=== PATIENT | female | born 1995 ===

== ENCOUNTER → 2021-04-12 10:13 | Outpatient (CLI) | payer SELFPAY | PROVIDERS: Visit Provider Physician Assistant | DX: J02.9 Acute pharyngitis, unspecified (principal) | CPT/HCPCS: 87070; 87147 ==

== ENCOUNTER → 2022-03-15 12:44 | Outpatient (CLI) | payer OTHER, SELFPAY ==
[2022-03-15 13:29] LABS: Appearance Urine UA SL CLOUDY; Bilirubin Urine UA NEGATIVE (NEGATIVE); Color Urine UA YELLOW; Glucose Urine UA NEGATIVE (Negative); Ketones Urine UA NEGATIVE (NEGATIVE); Leukocyte Esterase Urine UA 3+ (NEGATIVE); Nitrite Urine UA POSITIVE (Negative); Occult Blood Urine UA TRACE-LYSED (Negative); Protein Urine UA NEGATIVE (Negative); Urobilinogen Urine UA 0.2 E.U./dL (0.2)
[2022-03-15 13:35] LABS: Add Manual Diff / Slide Review NO; Basophils Absolute Auto 0 /uL (0-100); Basophils Percent Auto 0.2 % (0-2); Eosinophils Absolute Auto 0 /uL (0-450); Eosinophils Percent Auto 0.6 % (2-4); Hemoglobin 12.8 g/dL (12.0-16.0); Lymphocytes Absolute Auto 1800 /uL (1100-4500); Lymphocytes Percent Auto 26.2 % (25-40); Mean Corpuscular HGB Conc 35.7 % (30-36); Mean Corpuscular Hemoglobin 29.2 PG (26-34); Monocytes Absolute Auto 200 /uL (0-900); Monocytes Percent Auto 3.2 % (3-14); Neutrophils Absolute Auto 4800 /uL (1500-7000); Neutrophils Percent Auto 69.8 % (50-75); Platelet Count 164 X10^3/uL (150-400); Red Blood Cell Count 4.39 X10^6/uL (4.0-5.2); Red Cell Distribution Width 13.7 % (11.6-14.8); White Blood Cell Count 6.9 X10^3/uL (4.5-11.0)
[2022-03-15 13:47] LABS: RBC Urine 1-5/HPF (0-5/HPF); Squamous Epithelial Cell Urine 0-1 /HPF (0-5/HPF); WBC Urine 30-100/HPF (0-5/HPF)
[2022-03-15 13:48] LABS: Bacteria Urine Many (>30)
[2022-03-15 15:35] LABS: Hepatitis B Surface Antigen NEGATIVE s/c (NEGATIVE); Rubella Antibody IgG 21.1 IU/mL (>15)
[2022-03-15 16:04] LABS: HIV 1 & 2 Ab/Ag 4th Gen Combo NEGATIVE (NEGATIVE); Hep C Virus Ab w/Reflex Quant NEGATIVE s/c (NEGATIVE)
[2022-03-16 13:24] LABS: RPR Screen Non Reactive (Non Reactive); Varicella IgG Antibody 474 index (Immune >165)
== END ==
PROVIDERS: Referring Provider Obstetrics & Gynecology; Visit Provider Obstetrics & Gynecology
DX: Z34.00 Encounter for supervision of normal first pregnancy, unspecified trimester (principal)
CPT/HCPCS: 36415; 80055; 81003; 81015; 86787; 86803; 86850; 86900; 86901; 87086; 87389

== ENCOUNTER → 2022-03-17 14:08 | Outpatient (CLI) | payer OTHER, SELFPAY ==
--- NOTE | 2022-03-17 14:10 | DI.US.S_ITS ---
PROCEDURE: US OB >= 14 WEEKS FETUS INDICATIONS: ANATOMY OUTSIDE/PRIOR DATING DATA: Last menstrual period (LMP): October 25, 2021 LMP-based estimated date of delivery (ANNA): August 01, 2022. First dating scan (date and location): March 17, 2022. Estimated date of delivery (ANNA) from first dating scan: August 05, 2022. The calculations are made using the sonographic ANNA of August 05, 2022. TECHNIQUE: Real-time scanning was performed of the fetus, with image documentation and biometric measurements. Endovaginal scanning: Not performed COMPARISON: None. FINDINGS: General: A single living intrauterine gestation is present. Presentation: Vertex. Placenta: Placental position is posterior , without previa. Amniotic fluid index: 13.4 cm with largest pocket measuring 3.9 cm. heart rate: 153 beats per minute. Maternal cervical canal: 4.9 cm long. Normal lower limit is 2.5 cm. biometrics: Biparietal diameter: 4.8 cm, 20 weeks and 4 days Head circumference: 17.8 cm, 20 weeks and 2 days Abdominal circumference: 13.7 cm, 19 weeks and 1 day Femur length: 3.0 cm, 19 weeks and 1 day Clinically estimated gestational age: 20 weeks and 3 days Composite gestational age from present scan: 19 weeks and 6 days Estimated weight and percentile: 286 g which correlates with the 6th percentile. Anatomic survey: Neuro: Ventricles are non-dilated at less than 10 mm. Cisterna magna is normal at 3-11 mm. Cerebellum is normal in size and morphology. Nuchal skin fold: Normal at less than 6 mm between 14-21 weeks gestational age. Face: Nose and lips, facial profile are normal. Spine: No evidence for spina bifida. Heart: 4-chambered heart is present, with normal ventricular outflow tracts. Diaphragm: Diaphragm is intact. Stomach: Left-sided stomach is present. Kidneys: No hydronephrosis. Normal is less than 5 mm in 2nd trimester, less than 7 mm in 3rd trimester. Cord: 3-vessel cord has orthotopic insertion. Bladder: Normal in size. Extremities: All 4 extremities identified. IMPRESSION: Single living intrauterine gestation with estimated sonographic gestational age of approximately 19 weeks and 6 days, correlating with estimated dated delivery of approximately August 05, 2022. Estimated weight is approximately 286 g which correlates with the 6th percentile based off gestational age. Recommend clinical correlation and follow-up. Otherwise, unremarkable second-trimester anatomic screening survey. We strive to produce accurate, complete, and clear reports of imaging services. To assist us in improving patient care, this report was composed using standard report templates and voice recognition software. Therefore, it may contain abnormal punctuation, insertions and/or omissions. Occasional wrong-word or sound-alike substitutions may occur. Though we review the report and make efforts to correct it, we do recommend that the report be read carefully in proper context to recognize any text inaccuracies. Dictated by: Asher Isaac M.D. on 03/17/2022 at 16:21 Approved by: Asher Isaac M.D. on 03/17/2022 at 16:27
== END ==
PROVIDERS: PCP Internal Medicine; Referring Provider Obstetrics & Gynecology; Visit Provider Obstetrics & Gynecology
DX: Z34.02 Encounter for supervision of normal first pregnancy, second trimester (principal); Z3A.19 19 weeks gestation of pregnancy
CPT/HCPCS: 76811

== ENCOUNTER → 2022-04-26 15:39 | Outpatient (CLI) | payer OTHER, SELFPAY ==
--- NOTE | 2022-04-26 15:39 | DI.US.S_ITS ---
PROCEDURE: US OB FOLLOW UP INDICATIONS: GROWTH OUTSIDE/PRIOR DATING DATA: Last menstrual period (LMP): October 25, 2021 LMP-based estimated date of delivery (ANNA): August 01, 2022 First dating scan (date and location): March 17, 2022 Estimated date of delivery (ANNA) from first dating scan: August 05, 2022 The calculations are made using the ultrasound ANNA of August 05, 2022. TECHNIQUE: Real-time scanning was performed of the fetus, with image documentation and biometric measurements. Endovaginal scanning: Performed COMPARISON: None. FINDINGS: General: A single living intrauterine gestation is present. Presentation: Vertex Placenta: Placental position is posterior, without previa. Amniotic fluid index: 13.5 cm, normal range is 5-24 cm. Single deepest vertical pocket is 4.3 cm. heart rate: 152 beats per minute. Maternal cervical canal: Closed and 4.7 cm long. Normal lower limit is 2.5 cm. biometrics: Biparietal diameter: 26 weeks 3 days Head circumference: 25 weeks 4 days Abdominal circumference: 24 weeks 2 days Femur length: 25 weeks 5 days Clinically estimated gestational age: 26 weeks 1 day Composite gestational age from present scan: 25 weeks 4 days Estimated weight and percentile: 763 grams corresponding to the 8th percentile for gestational age. Other: Not applicable. IMPRESSION: Single living intrauterine with ultrasound estimated gestational age of 214-weeks 4 days in the current study and expected age of 26 weeks 1 day based on initial ultrasound. Estimated weight 763 grams corresponding to the 8th percentile for gestational age concerning for developing intrauterine growth restriction. Recommend close clinical observation and short-term follow-up ultrasound. Dictated by: Delaney Marc MD, PhD on 04/26/2022 at 17:18 Approved by: Delaney Marc MD, PhD on 04/26/2022 at 17:21
== END ==
PROVIDERS: PCP Internal Medicine; Referring Provider Obstetrics & Gynecology; Visit Provider Obstetrics & Gynecology
DX: Z36.2 Encounter for other antenatal screening follow-up (principal); Z3A.25 25 weeks gestation of pregnancy
CPT/HCPCS: 76816

== ENCOUNTER → 2022-05-03 13:56 | Outpatient (CLI) | payer OTHER, SELFPAY ==
[2022-05-03 15:22] LABS: Hematocrit 34.8 % (36-46); Hemoglobin 12.2 g/dL (12.0-16.0)
[2022-05-03 15:34] LABS: GTT (PREG) 1 Hour PP 50gm Dose 85 mg/dL (76-139)
== END ==
PROVIDERS: PCP Internal Medicine; Referring Provider Obstetrics & Gynecology; Visit Provider Obstetrics & Gynecology
DX: Z34.02 Encounter for supervision of normal first pregnancy, second trimester (principal); Z3A.26 26 weeks gestation of pregnancy
CPT/HCPCS: 36415; 82950; 85014; 85018

== ENCOUNTER → 2022-05-12 15:02 | Outpatient (CLI) | payer OTHER, SELFPAY ==
[2022-05-12 20:38] LABS: Urine N gonorrhoeae NOT DETECTED
[2022-05-12 20:54] LABS: Urine Chlamydia NOT DETECTED
== END ==
PROVIDERS: PCP Internal Medicine; Visit Provider Obstetrics & Gynecology
DX: Z34.02 Encounter for supervision of normal first pregnancy, second trimester (principal); Z3A.28 28 weeks gestation of pregnancy
CPT/HCPCS: 87491; 87591

== ENCOUNTER → 2022-07-18 13:04 | Outpatient (CLI) | payer OTHER, SELFPAY ==
[2022-07-19 12:42] LABS: Strep Grp B PCR POS for Grp B Strep
== END ==
PROVIDERS: PCP Internal Medicine; Visit Provider Physician Assistant Medical
DX: Z34.03 Encounter for supervision of normal first pregnancy, third trimester (principal); Z3A.36 36 weeks gestation of pregnancy
CPT/HCPCS: 87186; 87653

== ENCOUNTER → 2022-08-09 13:18 | Outpatient (CLI) | payer OTHER, SELFPAY ==
[2022-08-09 21:08] LABS: Strep Grp B PCR POS for Grp B Strep
== END ==
PROVIDERS: PCP Internal Medicine; Visit Provider Obstetrics & Gynecology
DX: Z34.83 Encounter for supervision of other normal pregnancy, third trimester (principal); Z3A.40 40 weeks gestation of pregnancy
CPT/HCPCS: 87653

== ENCOUNTER 2022-08-09 14:05 | Observation (INO) | payer OTHER, SELFPAY ==
--- NOTE | 2022-08-09 14:11 | DI.US.S_ITS ---
PROCEDURE: US OB LIMITED INDICATIONS: LOW AMNIOTIC FLUID. POSTDATES. OUTSIDE/PRIOR DATING DATA: Last menstrual period (LMP): October 25, 2021. LMP-based estimated date of delivery (ANNA): August 01, 2022 First dating scan (date and location): March 17, 2022, [facility] Estimated date of delivery (ANNA) from first dating scan: August 05, 2022 TECHNIQUE: Real-time scanning was performed of the fetus, with image documentation and biometric measurements. Biophysical profile was also obtained. COMPARISON: None. FINDINGS: General: A single living intrauterine gestation is present. Presentation: Vertex. Placenta: Placental position is posterior maternal right , without previa. Amniotic fluid index: 3.2 cm, normal range is 5-24 cm. Single deepest vertical pocket is 1.6 cm. heart rate: 155 beats per minute. Maternal cervical canal: Not visualized biometrics: Biparietal diameter: 9.4 cm, 38 weeks, 3 days Head circumference: 33.9 cm, 38 weeks, 6 days Abdominal circumference: 32.7 cm, 36 weeks, 4 days Femur length: 7.5 cm, 38 weeks, 4 days Clinically estimated gestational age: 40 weeks, 0 days Composite gestational age from present scan: 38 weeks, 1 day Biophysical profile: Tone: 2 points. Movement: 2 points. Respiration: 2 points. Largest pocket of fluid: 0 points. Umbilical artery Doppler: 2.16, 2.37 IMPRESSION: 1. Single live intrauterine gestation with a composite gestational age of 38 weeks, 1 days which is concordant with dates by initial scan. 2. Oligohydramnios. 3. 6/8 biophysical profile given low ALISTAIR. 4. Normal umbilical artery S/D ratio. We strive to produce accurate, complete, and clear reports of imaging services. To assist us in improving patient care, this report was composed using standard report templates and voice recognition software. Therefore, it may contain abnormal punctuation, insertions and/or omissions. Occasional wrong-word or sound-alike substitutions may occur. Though we review the report and make efforts to correct it, we do recommend that the report be read carefully in proper context to recognize any text inaccuracies. Dictated by: Sofy Villanueva M.D. on 08/09/2022 at 15:29 Approved by: Sofy Villanueva M.D. on 08/09/2022 at 15:32
== END 2022-08-09 16:45 | disposition home or self-care (01) ==
PROVIDERS: Admitting Provider Obstetrics & Gynecology; PCP Internal Medicine; Referring Provider Obstetrics & Gynecology; Visit Provider Obstetrics & Gynecology
DX: O41.03X0 Oligohydramnios, third trimester, not applicable or unspecified (principal); Z3A.40 40 weeks gestation of pregnancy
CPT/HCPCS: 59025; 59050; 76815; 76819; 87653; G0378; G0379

== ENCOUNTER 2022-08-10 12:58 | Outpatient (CLI) | payer OTHER, SELFPAY | END 2022-08-10 13:50 | disposition home or self-care (01) | LOC: LABOR 13:22 → OB 08-12 08:04 | PROVIDERS: PCP Internal Medicine; Referring Provider Obstetrics & Gynecology; Visit Provider Obstetrics & Gynecology | DX: O41.03X0 Oligohydramnios, third trimester, not applicable or unspecified (principal); O36.8130 Decreased fetal movements, third trimester, not applicable or unspecified; O48.0 Post-term pregnancy; Z3A.40 40 weeks gestation of pregnancy | CPT/HCPCS: 59025; G0378; G0379 ==

== ENCOUNTER 2022-08-11 08:59 | Outpatient (CLI) | payer OTHER, SELFPAY ==
--- NOTE | 2022-08-11 10:03 | DI.US.S_ITS ---
PROCEDURE: US OB BIOPHYSICAL PROFILE INDICATIONS: POST DATES; OLIGOHYDRAMNIOS OUTSIDE/PRIOR DATING DATA: Last menstrual period (LMP): 10/25/2021 LMP-based estimated date of delivery (ANNA): 08/01/2022 First dating scan (date and location): 03/17/2022 Estimated date of delivery (ANNA) from first dating scan: 08/05/2022 The calculations are made using the working ANNA of 08/09/2022. TECHNIQUE: Real-time scanning was performed of the fetus for biophysical profile, with image documentation. Endovaginal scanning: Not indicated COMPARISON: [facility], , OB >= 14 WEEKS FETUS, 06/06/2022, 16:33. [facility], OB >= 14 WEEKS FETUS, 08/09/2022, 13:47. [facility] OB LIMITED, 08/09/2022, 14:23. FINDINGS: General: A single living intrauterine gestation is present. Presentation: Vertex Placenta: Placental position is right fundal, without previa. Amniotic fluid index: 0 cm, normal range is 5-24 cm. Single deepest vertical pocket is 0 cm. heart rate: 121 beats per minute. Maternal cervical canal: Not well seen. Estimated gestational age from initial scan: 40 weeks, 2 days. Biophysical profile: Tone: 2 points. Movement: 2 points. Respiration: 2 points. Largest pocket of fluid: 0 points. IMPRESSION: 1. Single live intrauterine gestation with fetus in vertex presentation. heart rate is 121 beats per minute. 2. No appreciable amount of amniotic fluid is identified consistent with oligohydramnios. 3. biophysical profile score is 6/8 with largest pocket scores 0. We strive to produce accurate, complete, and clear reports of imaging services. To assist us in improving patient care, this report was composed using standard report templates and voice recognition software. Therefore, it may contain abnormal punctuation, insertions and/or omissions. Occasional wrong-word or sound-alike substitutions may occur. Though we review the report and make efforts to correct it, we do recommend that the report be read carefully in proper context to recognize any text inaccuracies. Dictated by: Abhishek Moore M.D. on 08/11/2022 at 12:28 Approved by: Abhishek Moore M.D. on 08/11/2022 at 12:31
== END 2022-08-11 13:12 | disposition home or self-care (01) ==
LOC: LABOR 11:15 → OB 08-12 08:03
PROVIDERS: PCP Internal Medicine; Referring Provider Obstetrics & Gynecology; Visit Provider Obstetrics & Gynecology
DX: O41.03X0 Oligohydramnios, third trimester, not applicable or unspecified (principal); O48.0 Post-term pregnancy; Z3A.40 40 weeks gestation of pregnancy
CPT/HCPCS: 59025; 76819; G0378; G0379

== ENCOUNTER 2022-08-11 15:12 | Inpatient (IN) | payer OTHER, SELFPAY ==
[2022-08-11 16:41] VITALS: BP 122/76
[2022-08-11 18:07] LABS: Add Manual Diff / Slide Review NO; Basophils Absolute Auto 0 /uL (0-100); Basophils Percent Auto 0.2 % (0-2); Eosinophils Absolute Auto 0 /uL (0-450); Eosinophils Percent Auto 0.2 % (2-4); Hematocrit 37.5 % (36-46); Hemoglobin 13.2 g/dL (12.0-16.0); Lymphocytes Absolute Auto 1900 /uL (1100-4500); Lymphocytes Percent Auto 16.6 % (25-40); Mean Corpuscular HGB Conc 35.1 % (30-36); Mean Corpuscular Hemoglobin 31.1 PG (26-34); Mean Corpuscular Volume 88.5 fL (80-100); Monocytes Absolute Auto 500 /uL (0-900); Monocytes Percent Auto 4.2 % (3-14); Neutrophils Absolute Auto 9100 /uL (1500-7000); Neutrophils Percent Auto 78.8 % (50-75); Platelet Count 137 X10^3/uL (150-400); Red Blood Cell Count 4.24 X10^6/uL (4.0-5.2); Red Cell Distribution Width 13.9 % (11.6-14.8); White Blood Cell Count 11.6 X10^3/uL (4.5-11.0)
[2022-08-11 18:21] LABS: COVID19 -Nasal RAPID Negative (Negative)
--- NOTE | 2022-08-11 18:27 | P.HPOB_ITS ---
OB HPI Date/Time Date of admission: 08/11/22 Date Patient Seen: 08/11/22 Time Patient Seen: 18:27 History of Present Condition Chief complaint: ANNA Calculator Estimated Delivery Date Method Current WG Current Estimate 08/09/22 Conception 40w 2d Other Estimates 08/01/22 LMP (Certain) 41w 3d 08/03/22 Ultrasound #1 41w 1d Estimated Gestational Age (weeks): 40+2 : 1 Para: 0 care: good care, initiated at week # (14), number of visits (11) and pounds weight gain (34) Dating criteria OB: LMP confirmed by 2nd trimester US Ultrasounds: normal mid trimester US Obstetrical complications: other (oligohydramnios) Medical complications OB: none Indications Indication for induction OB: oligohydramnios (ALISTAIR=0) Preadmission Labs Last OB Lab Results: Blood Type A Positive 03/15/22 12:57 Antibody Screen Negative 03/15/22 12:57 Hematocrit 37.5 % (36-46) 08/11/22 16:10 Hemoglobin 13.2 g/dL (12.0-16.0) 08/11/22 16:10 Hepatitis B Surface Antigen Negative s/c (NEGATIVE) 03/15/22 12 :57 Hepatitis C Antibody Negative s/c (NEGATIVE) 03/15/22 12:57 Rubella Antibody 21.1 IU/mL (>15) 03/15/22 12:57 Varicella-Zoster IgG Antibody 474 index (Immune >165) 03/15/22 12:57 Glucose 1 Hour 85 mg/dL (76-139) 05/03/22 15:13 Group B Streptococcus (PCR) Pos for grp b strep H 08/09/22 13:1 8 -: Chlamydia screen: negative, Gonorrhea screen: negative and Urine: negative External Labs -: Urine: negative Evaluation Evaluation Baseline heart rate: 145 Variability: Moderate (11-25) monitor accelerations: Present Monitor Decelerations: Variable (few,mild) Contraction Frequency (minutes): 5 Uterine Contraction Intensity: Mild Status: Category l Dilation (cm): 1 Effacement (%): 80 station: -1 Position of cervix: mid Consistency: medium PFSH Medical History (Updated 05/12/22 @ 16:03 by Delores Brown MD) Insomnia Surgical History (Updated 01/30/22 @ 22:14 by Harleen Nunes) [place] teeth extracted (~2013) Family History (Updated 01/30/22 @ 22:16 by Harleen Nunes) Grandfather Cancer Stroke Grandmother Hypertension Hyperlipidemia Chronic kidney disease Grandmother Hypertension Stroke Social History marital status: number of children: 0 household members: spouse housing: house pets and animals: Yes (1 cat, 1 dog) occupational status: employed current occupational exposures/hazards: No randall/confucianist: Catholic special randall needs: No seatbelt use: always water heater temp set < 120 deg: No (not sure) working smoke detector in home: Yes fire extinguisher in home: Yes carbon monox detector in home: Yes firearms in home: No (declining to answer) do you feel safe at home: Yes Smoking Status: Never smoker second hand exposure: No alcohol intake: former substance use type: does not use during the past year weight has: remained stable well-balanced diet: daily or most days daily servings fruits/ve-4 caffeine: No Type(s) of exercise: walking frequency: 1-2 times per week duration: 30-45 minutes/day Meds Home Medications and Allergies Home Medications Medication Instructions Recorded Confirmed Type melatonin 1 mg tablet 1 mg PO BEDTIME PRN see MD orders 01/13/22 08/11/22 History prenat.vits,jhony,vqf-zfbs-szyor 1 tab PO DAILY 01/13/22 08/11/22 History calcium carbonate 260 mg calcium 260 mg PO DAILY 01/26/22 08/11/22 History (650 mg) chewable tablet (Jhony-Mint) Allergies Allergy/AdvReac Type Severity Reaction Status Date / Time amoxicillin [From Augmentin] Allergy Intermediate Hives Verified 08/09/22 13:13 azithromycin [From Zithromax] Allergy Intermediate Hives Verified 08/09/22 13:13 clavulanic acid Allergy Intermediate Hives Verified 08/09/22 13:13 [From Augmentin] gentamicin Allergy Intermediate Hives Verified 08/09/22 13:13 OB Exam Narrative Exam Narrative: Generally: Patient is sitting up in bed, no acute distress Lungs: Clear to auscultation bilaterally Cardiovascular: Regular rate and rhythm Fundal height: 40 cm Estimated weight: 7 lb Extremities: No edema, 1+ DTRs Objective Labs Result Diagrams: 08/11/22 16:10 Labs: Laboratory Results - last 24 hr 08/11/22 08/11/22 16:10 16:10 WBC 11.6 H RBC 4.24 Hgb 13.2 Hct 37.5 MCV 88.5 MCH 31.1 MCHC 35.1 RDW 13.9 Plt Count 137 L Neut % (Auto) 78.8 H Lymph % (Auto) 16.6 L [place] % (Auto) 4.2 Eos % (Auto) 0.2 L Baso % (Auto) 0.2 Neut # (Auto) 9100 H Lymph # (Auto) 1900 [place] # (Auto) 500 Eos # (Auto) 0 Baso # (Auto) 0 SARS-CoV-2 (PCR) Negative Assessment and Plan Assessment and Plan Assessment and Plan narrative: Assessment: 26-year-old 1 para 0 at 40-,2/7 weeks gestation with severe oligohydramnios In early labor GBS positive Penicillin allergic Plan: If contractions space will do misoprostol Possible Pitocin in the morning Cefazolin GBS protocol Expected management to spontaneous vaginal delivery Time Spent with Patient Total time spent with greater than 50% in coordination of care (as documented) at patient's floor/unit and/or counseling patient:: Greater than 35 minutes
[2022-08-11] MEDS: CEFAZOLIN 2 GM/100 ML PREMIX 100 ML IV (20:05)
[2022-08-11] MEDS: LACTATED RINGERS 1,000 ML 100 ML IV (20:05)
[2022-08-12] MEDS: LACTATED RINGERS 500 ML 999 ML IV (03:00)
[2022-08-12] MEDS: CEFAZOLIN VIAL 1 GM in SODIUM CHLORIDE 0.9% 100 ML IV ×2 (04:15→12:14)
[2022-08-12] MEDS: OXYTOCIN PREMIX 30 UNIT/500 ML PLAST..BAG IV (04:58)
[2022-08-12] MEDS: FENT 2MCG/ML BUPIV 0.125% EPI 200 MCG/100 ML PLAST..BAG 8 MCG EPIDURAL (06:29)
[2022-08-12] MEDS: LACTATED RINGERS 1,000 ML 100 ML IV (08:55)
[2022-08-12] MEDS: FENT 2MCG/ML BUPIV 0.125% EPI 200 MCG/100 ML PLAST..BAG 5 MCG EPIDURAL (11:15)
--- NOTE | 2022-08-12 18:16 | PM.OBPNLAB ---
Date/Time Date Patient Seen: 08/12/22 Time Patient Seen: 07:30 Pain Control Pain control: epidural (at 3 am ) Pelvic Exam Dilation (cm): 3 Effacement (%): 80 station: -1 Amniotic membrane status: Intact Contractions Contractions on admission: irregular Pitocin rate (mU/min): 4 Contraction frequency (min): 3 Contraction duration (min): 1 Contraction pattern: Regular Contraction intensity: Strong/Firm Status status: Category l Heart Rate Baseline: 135 Monitor Accelerations: Present Monitor Decelerations: Absent Monitor Variability: Moderate Assessment and Plan Assessment: active labor Plan: continuous present management Comments: Recheck cervix at 10am
--- NOTE | 2022-08-12 18:19 | PM.OBPRVD ---
Events: Oligohydramnios (Severe) Labor & Delivery Delivery date: 08/12/22 Intrapartal Events: None Cervical ripening method: none Induction method: none Delivery augmentation: pitocin Delivery monitor: external FHT and external uterine Route of delivery: Episiotomy description: None L&D Laceration Description: Vaginal - 2nd Degree Delivery repair: chromic Estimated blood loss (mL): 100 Anesthesia Type: Epidural Complications: None Narrative: Patient complete and pushed for 3 hours and 31 minutes. No fluid at delivery. Unsure of when rupture of membranes occurred. Suspect sometimes through the night. At 2:03 p.m., a live male infant delivered spontaneously in the LISANDRA presentation over an intact perineum. No nuchal cord. The remainder of the body delivered without difficulty and was placed on mom's abdomen. The cord was double clamped and cut after it stopped pulsing. Cord bloods were obtained. The placenta delivered intact with a three-vessel cord at 2:32 p.m.. The fundus was massaged to firm. A second-degree vaginal laceration was repaired with 2-0 chromic in the usual fashion. Hemostasis was achieved. Estimated blood loss 100 cc. Apgars 9 at 1 minute and 9 at 5 minutes. Weight: 7 lb 1 oz. Estimated blood loss 100 cc. . Epidural analgesia. Mom and infant stable to recovery. Baby 1: gender: Male Presentation: vertex Position: Right Occiput Anterior Placenta delivery description: Spontaneous Cord Vessel Description: 3 Vessels and Clamped/Cut (after cord stopped pulsing) score (1 min): 9 score (5 min): 9 weight: 7 lb 1 oz Plan for aftercare: Routine care
[2022-08-12] MEDS: IBUPROFEN 600 MG TABLET PO (18:22)
[2022-08-12] MEDS: ACETAMINOPHEN 325 MG TABLET 650 MG PO (18:22)
[2022-08-12] MEDS: LANOLIN OINT 7 GM 1 APPLIC TOP (18:23)
[2022-08-12] MEDS: DERMOPLAST SPRAY 20% 60 ML 1 SPRAY TOP (18:23)
[2022-08-13] MEDS: ACETAMINOPHEN 325 MG TABLET 650 MG PO ×3 (00:37→14:50)
[2022-08-13] MEDS: IBUPROFEN 600 MG TABLET PO ×3 (00:38→14:50)
[2022-08-13] MEDS: DOCUSATE 100 MG CAPSULE PO (11:38)
--- NOTE | 2022-08-27 17:56 | P.DS_ITS ---
Discharge Providers Provider Date of admission: 08/11/22 15:12 Discharge Date: 08/13/22 Primary care physician: Kevin Barrera MD Consults: 08/13/22 14:45 Consult to Gore Cutter Routine Comment: Discharge provider: Delores Brown MD Summary Hospital Course Date Patient Seen: 08/13/22 Time Patient Seen: 08:30 Diagnoses: 40-2/7 weeks gestation Severe oligohydramnios Spontaneous vaginal delivery Hospital Course: Patient is a 26-year-old 1 para 1 who presented on August 11, 2022 for a nonstress test and ALISTAIR. She was found to have an ALISTAIR of 0. She was in early labor. She was 1 cm/80% effaced and-1 station. By the morning of August 12, 2022 she had progressed to 3 cm 80% and -1 station. She had a rupture of membr ane sometimes through the night. She was group B strep positive and was getting cefazolin prophylaxis. She received an epidural for pain management. After 3 hours and 31 minutes of pushing she had a spontaneous vaginal delivery without complication. Her course was unremarkable and she was discharged home on August 13, 2022. Peripartum Data Delivery Method: Natural Vaginal Laceration Description: Vaginal - 2nd Degree Episiotomy description: None Procedures: Group B strep prophylaxis Epidural analgesia Spontaneous vaginal delivery Second-degree vaginal laceration repair complications: none [place] 1: Gender: Male Disposition of : home Status at Discharge Cognitive/behavioral status at discharge: oriented Functional status at discharge: independent ambulation Overall status at discharge: patient is progressing back to baseline Time Spent with Patient Time attestation: Total time spent providing and/or coordinating discharge services: Time spent: Less than 30 minutes Objective Labs Result Diagrams: 08/11/22 16:10 Exam Narrative Exam Narrative: Generally: Patient is sitting in chair, holding infant, no acute distress Fundus: Firm at U -1 Extremities: Trace edema, negative Homans Discharge Plan Discharge Plan Patient Disposition: Home Provider Discharge Comment: Call with fever, chills, or bleeding vaginally more than a pad in an hour Ibuprofen 600 mg every 6 hours as needed for cramping Tylenol 650 mg every 6 hours as needed Drink lots of fluids Discharge orders & Medications Prescriptions: Continued calcium carbonate [Jhony-Mint] 260 mg calcium (650 mg) tablet,chewable 260 mg PO DAILY prenat.vits,jhony,ipi-jkur-cllys Tablet 1 tab PO DAILY melatonin 1 mg tablet 1 mg PO BEDTIME PRN (Reason: see MD orders) Follow up/Referrals: Delores Brown MD [Physician] - 6 Weeks (My office will call patient on August 15, 2022 to schedule a 6 week exam) Diet/Activity/Treatments Diet: Regular Activity: Nothing in the vagina for 6 weeks Skin/Wound/Dressing Care Report to your healthcare provider any signs of infection, such as:: chills, fever, increased pain and unusual drainage Visit Report/Discharge Packet Instructions: DI for Labor and Delivery, Vaginal , DI for Depression Stand Alone Forms: Discharge: Care Discharge Data Primary Care Provider: Kevin Barrera V
== END 2022-08-13 21:00 | disposition home or self-care (01) | DRG 807 ==
PROVIDERS: Admitting Provider Obstetrics & Gynecology; PCP Internal Medicine; Referring Provider Obstetrics & Gynecology; Visit Provider Obstetrics & Gynecology
DX: O41.03X0 Oligohydramnios, third trimester, not applicable or unspecified (principal); Z37.0 Single live birth; Z3A.40 40 weeks gestation of pregnancy; O99.824 Streptococcus B carrier state complicating childbirth; O76 Abnormality in fetal heart rate and rhythm complicating labor and delivery; O70.1 Second degree perineal laceration during delivery; Z20.822 Contact with and (suspected) exposure to COVID-19; O48.0 Post-term pregnancy
CPT/HCPCS: 36415; 59025; 59050; 59400; 59409; 76819; 85025; 86850; 86900; 86901; 87635; C9803; G0379; J0690; J2590